=== PATIENT | male | born 2000 | race Two or more races ===

== ENCOUNTER 2021-08-05 20:01 | Emergency (ER) | payer OTHER ==
[~2021-08-05] VITALS: Ht 177.8 cm; Wt 74.8 kg
[2021-08-05 21:26] VITALS: BP 139/79
[2021-08-05] MEDS ORDERED: IBUPROFEN 600 MG TABLET ONE (22:32)
[2021-08-05] MEDS: IBUPROFEN 600 MG TABLET PO ONE (22:34)
[2021-08-05] MEDS ORDERED: HYDR-4303 PO (23:28)
[2021-08-05] MEDS ORDERED: IBUP-1955 PO (23:28)
[2021-08-05] MEDS ORDERED: HYDR-4209 PO (23:30)
--- NOTE | 2021-08-05 23:35 | NUR ---
Patient discharged to home in stable condition. Written and verbal after care instructions given. Patient verbalizes understanding of instruction. Pt ambulatory with a steady gait
== END 2021-08-05 23:36 | disposition home or self-care (01) ==
LOC: ER 20:06
DX: S62.665A Nondisplaced fracture of distal phalanx of left ring finger, initial encounter for closed fracture (principal); X58.XXXA Exposure to other specified factors, initial encounter; Y93.71 Activity, boxing; Y92.89 Other specified places as the place of occurrence of the external cause; Y99.8 Other external cause status
CPT/HCPCS: 70160-TC; 73130-TC

== ENCOUNTER 2022-09-21 20:44 | Emergency (ER) | payer OTHER ==
[~2022-09-21] VITALS: Ht 177.8 cm; Wt 63.5 kg
[~2022-09-21 20:44] MED LIST: HYDR-4209 PO; IBUP-1955 PO
--- NOTE | 2022-09-21 20:50 | NUR ---
ANNE MARIE 89 FROM HOME FOR C/O ABD PAIN. -N/V/D. HAD ALCOHOL TODAY. DIAGNOSED WITH PANCREATITIS RECENTLY. PATIENT IS AAOX4. WITH PAIN SCALE OF 10/10. PLACED COMFORTABLY IN BED. VITALS CHECKED.
[2022-09-21] MEDS ORDERED: MORPHINE SULFATE INJ 4 MG/ML DISP.SYRIN ONE (20:53)
[2022-09-21] MEDS ORDERED: ONDANSETRON HCL/PF 4 MG/2 ML VIAL ONE (20:53)
--- NOTE | 2022-09-21 20:58 | NUR ---
[facility]#20, LABS DRAWN , EKG AT BEDSIDE
[2022-09-21] MEDS ORDERED: IV NS 0.9% 1,000 ML BAG IV ONE (21:00)
[2022-09-21] MEDS ORDERED: ONDANSETRON HCL/PF 4 MG/2 ML VIAL IVP ONE (21:00)
[2022-09-21] MEDS ORDERED: MORPHINE SULFATE INJ 2 MG/ML DISP.SYRIN IV ONE ×2 (21:00→22:30)
--- NOTE | 2022-09-21 21:02 | NUR ---
US AT BEDSIDE
[2022-09-21 21:18] LABS: BASOPHILS % (AUTO) 0.2 % (0.0-2.0); EOSINOPHILS % (AUTO) 1.9 % (0.0-6.0); HEMATOCRIT 47 % (39-51); HEMOGLOBIN 16.4 g/dL (13.5-17.5); LYMPHOCYTES % (AUTO) 28.2 % (20.0-44.0); MEAN CORPUSCULAR HGB CONC 35 g/dl (31.0-36.0); MEAN CORPUSCULAR VOLUME 91 fL (80-96); MONOCYTES # (AUTO) 0.6 K/uL (0.1-1.30); MONOCYTES % (AUTO) 8.2 % (2.0-12.0); NEUTROPHILS # (AUTO) 4.3 K/uL (1.8-8.9); NEUTROPHILS % (AUTO) 61.5 % (43.0-81.0); PLATELET COUNT (AUTO) 237 K/uL (150-450); RED BLOOD CELL COUNT(AUTO) 5.19 MIL/uL (4.5-6.0); WHITE BLOOD COUNT (AUTO) 6.9 K/uL (4.3-11.0)
[2022-09-21 21:35] LABS: ALBUMIN 4.6 g/dL (3.4-5.0); BILIRUBIN,DIRECT 0.3 mg/dL (0.0-0.2); BILIRUBIN,TOTAL 1.6 mg/dL (0.2-1.0); CALCIUM, SERUM 9.3 mg/dL (8.5-10.1); POTASSIUM 3.8 mmol/L (3.5-5.1); TOTAL PROTEIN, SERUM 7.9 g/dL (6.4-8.2)
--- NOTE | 2022-09-21 22:19 | NUR ---
Patient does not wish to proceed with medical care recommended by Dr. Andre. Patient given information related to possible complications, up to and including , which could occur as a result of leaving the hospital at this time. Patient verbalizes understanding of risks involved due to leaving against medical advice. Patient has signed AMA form.
[2022-09-21] MEDS ORDERED: IV NS 0.9% 1,000 ML IV ONE (22:30)
[2022-09-21 23:26] VITALS: BP 132/88
== END 2022-09-21 23:28 | disposition left against medical advice (07) ==
LOC: ER 20:46
DX: K86.1 Other chronic pancreatitis (principal); F10.20 Alcohol dependence, uncomplicated; R10.12 Left upper quadrant pain; R11.0 Nausea; Z79.899 Other long term (current) drug therapy; Y90.0 Blood alcohol level of less than 20 mg/100 ml
CPT/HCPCS: 99285; 96374; 96361; 96375; 93005; 76705; 85025; 80048; 83690; 80076; 36415; 80320; J2270; J2405; J7030; G0480